=== PATIENT | male | born 1960 | race Caucasian/White ===

== ENCOUNTER 2016-07-30 22:45 | Emergency (ER) | payer MEDICAID ==
[~2016-07-30] VITALS: Ht 172.7 cm; Wt 59.3 kg
[~2016-07-30 22:45] MED LIST: ATEN25TA PO; HYDR12.53 PO; PROP20TA PO
[2016-07-30 22:46] VITALS: BP 157/91
== END 2016-07-31 01:26 | disposition left against medical advice (07) ==
LOC: ED 07-31 00:10
DX: R05 Cough (principal); R10.9 Unspecified abdominal pain; Z53.21 Procedure and treatment not carried out due to patient leaving prior to being seen by health care provider
CPT/HCPCS: 81003

== ENCOUNTER 2016-12-05 15:32 | Inpatient (IN) | payer MEDICAID ==
[~2016-12-05] VITALS: Ht 172.7 cm; Wt 64.5 kg
[2016-12-05 15:58] LABS: HEMATOCRIT 42.4 % (39.2-51.8); HEMOGLOBIN 14.4 g/dL (13.7-18.0)
[2016-12-05] MEDS ORDERED: AMLO10TA2 PO (16:49)
[2016-12-05] MEDS ORDERED: SULF-169 PO (16:49)
[2016-12-05] MEDS ORDERED: CEPH-368 PO (16:49)
[2016-12-05] MEDS ORDERED: morphine SULFATE 10 MG/ML, 1ML IVPush PRN (17:30)
[2016-12-05] MEDS ORDERED: ENALAPRILAT 1.25 MG/ML, 2ML IVPush PRN (17:30)
[2016-12-05] MEDS ORDERED: ONDANSETRON 2MG/ML, 2ML IVPush PRN (17:30)
[2016-12-05] MEDS ORDERED: POLYETHYLENE GLYCOL 17 GM PACKET PO PRN (17:30)
[2016-12-05] MEDS ORDERED: hydrALAzine 20 MG/ML, 1ML IVPush PRN (17:30)
[2016-12-05] MEDS ORDERED: LORazepam 1MG TABLET PO PRN (17:30)
[2016-12-05] MEDS ORDERED: DOCUSATE 100 MG CAPSULE PO PRN (17:30)
[2016-12-05] MEDS ORDERED: OXYcodone IR 5MG TABLET PO PRN (17:30)
[2016-12-05 18:25] LABS: HIV 1&2 ANTIBODY SCREEN Nonreactive (Nonreactive); HIV-1 p24 ANTIGEN Nonreactive (Nonreactive)
[2016-12-05 20:01] VITALS: BP 132/75
[2016-12-05] MEDS: SODIUM CHLORIDE 0.9% 1,000 ML IV SCH (20:43)
[2016-12-05] MEDS: PROPRANOLOL 20 MG TABLET PO SCH (20:46)
[2016-12-05] MEDS: CEPHALEXIN 500 MG CAPSULE PO SCH (20:46)
[2016-12-05] MEDS: ASPIRIN 81 MG TABLET EC PO SCH (20:47)
[2016-12-05] MEDS: SULFAMETH./TRIMETHOPRIM DS 800MG/160MG TABLET PO SCH (20:47)
[2016-12-05] MEDS: HEPARIN 5,000 UNITS/ML, 1ML SQ SCH (20:48)
[2016-12-05] MEDS ORDERED: ATORVASTATIN 20 MG TABLET PO SCH (21:00)
[2016-12-05] MEDS ORDERED: OMNIPAQUE 350 MG/ML, 100ML BOTTLE ONE (22:15)
[2016-12-06 00:07] LABS: DAU SCREEN DISCLAIMER
[2016-12-06 02:23] VITALS: BP 111/71
[2016-12-06 05:56] LABS: HEMATOCRIT 41.1 % (39.2-51.8); HEMOGLOBIN 13.9 g/dL (13.7-18.0); WHITE BLOOD COUNT 6.7 x10^3/uL (3.4-10)
[2016-12-06] MEDS: HEPARIN 5,000 UNITS/ML, 1ML SQ SCH (06:23)
[2016-12-06] MEDS: CEPHALEXIN 500 MG CAPSULE PO SCH ×2 (06:23→10:40)
[2016-12-06] MEDS: ASPIRIN 81 MG TABLET EC PO SCH (06:24)
[2016-12-06 06:30] LABS: ASPARTATE AMINO TRANSFERASE 55 U/L (15-37); BLOOD UREA NITROGEN 16 mg/dL (7-18)
[2016-12-06 06:55] VITALS: BP 130/75
[2016-12-06 08:42] LABS: HEP B SURF. AB > 1000.0 mIU/mL (0.0-10.0)
[2016-12-06] MEDS ORDERED: SENNA/DOCUSATE TABLET PO SCH (09:00)
[2016-12-06] MEDS ORDERED: AMLODIPINE 5 MG TABLET PO SCH (09:00)
[2016-12-06 09:17] LABS: HEPATITIS A ANTIBODY TOTAL Reactive (Nonreactive)
[2016-12-06] MEDS: PROPRANOLOL 20 MG TABLET PO SCH (10:41)
[2016-12-06] MEDS: SULFAMETH./TRIMETHOPRIM DS 800MG/160MG TABLET PO SCH (10:42)
[2016-12-06] MEDS: SODIUM CHLORIDE 0.9% 1,000 ML IV SCH (10:45)
[2016-12-06] MEDS ORDERED: ASPI-621 PO (12:56)
[2016-12-06] MEDS ORDERED: ATOR20TA9 PO (12:56)
== END 2016-12-06 13:37 | disposition left against medical advice (07) | DRG 69 ==
LOC: ED 17:15 → EDIP 17:16 → ED 17:30 → 4EST 18:39
PROVIDERS: ADMIT Internal Medicine; ATTEND Internal Medicine
DX: G45.9 Transient cerebral ischemic attack, unspecified (principal); B20 Human immunodeficiency virus [HIV] disease; L03.90 Cellulitis, unspecified; B18.2 Chronic viral hepatitis C; F17.200 Nicotine dependence, unspecified, uncomplicated; I10 Essential (primary) hypertension; M54.9 Dorsalgia, unspecified; F11.10 Opioid abuse, uncomplicated; F10.10 Alcohol abuse, uncomplicated; F15.10 Other stimulant abuse, uncomplicated; G89.29 Other chronic pain; Z53.21 Procedure and treatment not carried out due to patient leaving prior to being seen by health care provider
CPT/HCPCS: 36415; 70450; 70496; 70551; 80047; 80053; 80061; 80307; 81003; 83036; 83735; 84439; 84443; 85025; 85610; 85730; 86703; 86704; 86705; 86706; 86708; 86709; 86803; 87340; 87521; 87899; 93005; 93306; 99285; J1644; Q9967; G0435; G0479; J7030

== ENCOUNTER 2017-01-14 19:00 | Emergency (ER) | payer MEDICAID ==
[~2017-01-14] VITALS: Ht 172.7 cm; Wt 63.5 kg
[~2017-01-14 19:00] MED LIST changes: +AMLO10TA2 PO; +ASPI-621 PO; +ATOR20TA9 PO; +CEPH-368 PO; +SULF-169 PO
[2017-01-14 19:03] VITALS: BP 143/82
[2017-01-14] MEDS ORDERED: IBUPROFEN 200 MG TABLET ONE (19:48)
[2017-01-14 20:00] LABS: RAPID INFLUENZA A Negative (Negative); RAPID INFLUENZA B Negative (Negative)
[2017-01-14] MEDS ORDERED: IBUPROFEN 200 MG TABLET PO ONE (20:00)
== END 2017-01-14 21:01 | disposition home or self-care (01) ==
LOC: ED 19:50
DX: J44.9 Chronic obstructive pulmonary disease, unspecified (principal); B34.9 Viral infection, unspecified; I10 Essential (primary) hypertension; M54.30 Sciatica, unspecified side; F17.200 Nicotine dependence, unspecified, uncomplicated; F15.10 Other stimulant abuse, uncomplicated; Z86.73 Personal history of transient ischemic attack (TIA), and cerebral infarction without residual deficits
CPT/HCPCS: 87400; 99284

== ENCOUNTER 2017-10-31 20:12 | Emergency (ER) | payer MEDICAID ==
[~2017-10-31] VITALS: Ht 172.7 cm; Wt 70.0 kg
[~2017-10-31 20:12] MED LIST changes: -AMLO10TA2 PO; +AMLO10TA6 PO
[2017-10-31 20:17] VITALS: BP 208/106
== END 2017-10-31 20:35 | disposition left against medical advice (07) ==
LOC: ED 20:29
DX: F15.10 Other stimulant abuse, uncomplicated (principal)
CPT/HCPCS: 99283

== ENCOUNTER 2017-12-22 17:31 | Emergency (ER) | payer MEDICAID ==
[~2017-12-22] VITALS: Ht 172.7 cm; Wt 70.0 kg
[2017-12-22] MEDS ORDERED: SODIUM CHLORIDE 0.9% 1,000ML IVBOLUS ONE (18:00)
[2017-12-22] MEDS ORDERED: SODIUM CHLORIDE FLUSH 10ML SYR IVF ONE (18:00)
[2017-12-22] MEDS ORDERED: LORazepam 2 MG/ML, 1ML IVPush ONE (18:00)
[2017-12-22 18:13] LABS: BASOPHILS # (AUTO) 0.04 x10^3/uL (0-0.1); BASOPHILS % (AUTO) 1 % (0-1); EOSINOPHILS % (AUTO) 1 % (1-7); LYMPHOCYTES # (AUTO) 1.82 x10^3/uL (1-3.4); LYMPHOCYTES % (AUTO) 24 % (22-44); MD NO; MEAN CORPUSCULAR HEMOGLOBIN 32.9 pg (27.5-34.5); MEAN CORPUSCULAR HGB CONC 34.2 g/dL (33.2-36.2); MEAN CORPUSCULAR VOLUME 96.2 fL (81-97); MONOCYTES # (AUTO) 0.96 x10^3/uL (0.2-0.8); MONOCYTES % (AUTO) 12 % (2-9); NEUTROPHILS # (AUTO) 4.78 x10^3/uL (1.8-6.8); NEUTROPHILS % (AUTO) 62 % (42-75); PLATELET COUNT 254 x10^3/uL (130-400); RED BLOOD COUNT 4.81 x10^6/uL (4.38-5.82); RED CELL DISTRIBUTION WIDTH 13.6 % (9.4-14.8)
[2017-12-22 18:23] LABS: ALANINE AMINOTRANSFERASE 36 U/L (12-78); ALBUMIN 3.8 g/dL (3.4-5.0); ANION GAP 6 mmol/L (5-15); CALCIUM 9.5 mg/dL (8.5-10.1); CHLORIDE 105 mmol/L (98-107); CREATININE 1.35 mg/dL (0.7-1.3)
[2017-12-22 18:27] LABS: ALKALINE PHOSPHATASE 102 U/L (45-117); BILIRUBIN,TOTAL 0.6 mg/dL (0.2-1.0); TOTAL PROTEIN 8.7 g/dL (6.4-8.2); TROPONIN I < 0.015 ng/mL (0.000-0.045)
[2017-12-22] MEDS ORDERED: LORazepam 2 MG/ML, 1ML ONE (18:27)
[2017-12-22 20:17] VITALS: BP 167/98
== END 2017-12-22 20:19 | disposition home or self-care (01) ==
LOC: ED 19:33
DX: R07.89 Other chest pain (principal); J44.9 Chronic obstructive pulmonary disease, unspecified; I10 Essential (primary) hypertension; F43.10 Post-traumatic stress disorder, unspecified; F15.10 Other stimulant abuse, uncomplicated; F31.9 Bipolar disorder, unspecified; Z86.73 Personal history of transient ischemic attack (TIA), and cerebral infarction without residual deficits; Z21 Asymptomatic human immunodeficiency virus [HIV] infection status
CPT/HCPCS: 36415; 71046; 80053; 84484; 85025; 93005; 96374; 99285; J2060; J7030

== ENCOUNTER 2019-05-18 07:42 | Emergency (ER) | payer MEDICAID ==
[~2019-05-18] VITALS: Ht 172.7 cm; Wt 67.4 kg
[~2019-05-18 07:42] MED LIST changes: -AMLO10TA6 PO; +AMLO10TA8 PO; -ASPI-621 PO; +ASPI81TA45 PO; +ATOR20TA37 PO; -ATOR20TA9 PO; +HYDR12.517 PO; -HYDR12.53 PO
[2019-05-18] MEDS ORDERED: lisinopril PO (08:13)
--- NOTE | 2019-05-18 08:13 | NUR ---
Pt presents to ed with cough and congestion x2 weeks. Pt smokes 20 cigarettes per day, roommate also smokes. Pt is not SOB, speaks in long sentences. Pacing around room upon entry. Pt follows directions and sits and participates well in assessment.
[2019-05-18 09:10] LABS: RAPID INFLUENZA A Negative (Negative); RAPID INFLUENZA B Negative (Negative)
--- NOTE | 2019-05-18 09:29 | NUR ---
TASK RN: CARE FOR DC ONLY PROVIDED. PT SITTING UP ON GURNEY, NO ACUTE DISTRESS NOTED. NO IV TO DC. REVIEWED DC INSTRUCTIONS WITH PT. UNDERSTANDING VERBALIZED. PT LEFT AMB, GAIT STEADY.
[2019-05-18 09:30] VITALS: BP 134/70
== END 2019-05-18 09:32 | disposition home or self-care (01) ==
LOC: ED 08:02
DX: J06.9 Acute upper respiratory infection, unspecified (principal); J44.9 Chronic obstructive pulmonary disease, unspecified; I10 Essential (primary) hypertension; Z86.73 Personal history of transient ischemic attack (TIA), and cerebral infarction without residual deficits
CPT/HCPCS: 71045; 87400; 99284

== ENCOUNTER 2020-08-01 12:18 | Emergency (ER) | payer MEDICAID ==
[~2020-08-01] VITALS: Ht 172.7 cm; Wt 70.0 kg
[~2020-08-01 12:18] MED LIST changes: +AMLO-211 PO; -AMLO10TA8 PO; +lisinopril PO
[2020-08-01 12:26] VITALS: BP 146/85
--- NOTE | 2020-08-01 13:01 | NUR ---
PT AMBULATED TO ROOM FROM TRIAGE. PT CO N/V AND WEAKNESS X2-3 WEEKS. PT STATED THAT HE SOMETIMES HAS CP AND FEELS SOB. PT STATED THAT HE CAME IN TODAY BECAUSE HE [employer]WA [employer]CIAL FOR [employer] ABOUT AORTIC ANUERYSMS AND STATED THAT HE HAS A HISTORY OF ANUERYSMS AND THOUGHT HE SHOULD GET CHECKED OUT. PT DENIES ANY CURRENT CP OR FEVER.
--- NOTE | 2020-08-01 13:41 | NUR ---
PT LEFT BEFORE DISCHARGE INSTRUCTIONS COULD BE REVIEWED AND SIGNED.
== END 2020-08-01 13:43 | disposition home or self-care (01) ==
LOC: ED 13:11
DX: J44.9 Chronic obstructive pulmonary disease, unspecified (principal); F17.200 Nicotine dependence, unspecified, uncomplicated; I10 Essential (primary) hypertension; Z86.19 Personal history of other infectious and parasitic diseases
CPT/HCPCS: 93005; 99283